=== PATIENT | male | born 1995 | race Caucasian/White ===

== ENCOUNTER 2018-06-19 21:16 | Emergency (ER) | payer OTHER ==
[~2018-06-19] VITALS: Ht 177.8 cm; Wt 68.0 kg
[2018-06-20] MEDS ORDERED: ANUSOL-HC30 G2 RECTAL (04:41)
[2018-06-20] MEDS ORDERED: MIRALAX510 GM PO (04:41)
== END 2018-06-20 04:52 | disposition home or self-care (01) ==
LOC: ER 21:16
DX: K59.09 Other constipation (principal)